=== PATIENT | female | born 1955 | race Caucasian/White ===

== ENCOUNTER 2019-09-16 12:06 | Emergency (ER) | payer MEDICARE, SELFPAY ==
[2019-09-16 12:08] VITALS: BP 150/75; PULSE 70; TEMP 36.8; O2SAT 98
[2019-09-16] MEDS: Tetracaine 0.5% 4 ML BTL (12:25)
[2019-09-16] MEDS: Fluorescein STRIPS 100/BOX 1 MG (12:25)
--- NOTE | 2019-09-16 13:08 | ED.GENADUL_ITS ---
Discharge Plan Disposition Patient Disposition: HOME Condition: Stable Discharge Details Chief Complaint: EyeProblem Clinical Impression: Discomfort of left eye Primary Care Provider: [facility] ED Provider: Mason Galo Home Meds and New Rx's Prescriptions: Continued acyclovir 400 mg Tablet 400 mg PO PRN PRNRF: 0 simvastatin 40 mg Tablet 40 mg PO DAILY RF: 0 levothyroxine 500 mcg Recon Soln 500 mcg PO DAILY RF: 0 olmesartan 40 mg Tablet 40 mg PO DAILY RF: 0 Multi For Her 18 mg iron-600 mcg-40 mcg Capsule 1 tab-cap PO DAILY RF: 0 Discharge Instructions Instructions: Eye Pain (ED) Additional Instructions: At this time I examination does not reveal any signs of obvious infection, trauma, and your intraocular pressure is normal. Fluorescein dye of your eye was also normal. At this time I recommend using [id number] antihistamine drops for conservative therapy. I do recommend that you watch for new or evolving symptoms and return immediately to the ER otherwise when she returned home on Wednesday follow-up with a local invoicing specialist. Discharge Data Discharge Date/Time-TO BE ENTERED AT DEPARTURE: 09/16/19 13:22 Medical Decision Making 63-year-old female presenting with left eye irritation intermittent for couple of weeks. She appears well, nontoxic. Outside of minimal scleral swelling- edema her eye exam is unremarkable. Visual acuity is 20/20 bilaterally with corrective lenses. Intraocular pressure is within normal range. No fluorescein dye uptake. The differential includes but not exclude to conjunctivitis, allergic reaction, iritis, glaucoma, foreign body, corneal abrasion, detached retina, hyphema. Given her examination, visual acuities, normal intraocular pressure we discussed her options. She appears well, nontoxic. No clear indication for topical antibiotic or steroid therapy. No evidence of acute closed angle glaucoma. We discussed conservative therapy with antihistamine drops, return to the ER for new or worsening symptoms, otherwise following up with an invoicing specialist when she returns home to [place] on Wednesday. Patient has no additional questions or concerns and is comfortable with this plan HPI General Mode of arrival: ambulatory . Date/Time Provider Initiated Documentation: 09/16/19 12:14 . Limitations to Documentation: no limitations . Information obtained by: patient . HPI Narrative: This is a 63-year-old female with a history of thyroid disease presenting to the ER with 2-3-week history of intermittent left eye irritation. She reports most recently she is just getting over with a cold and feels like her left eye is irritated, maybe has a foreign body or a scratch. She denies any obvious trauma. Denies any drainage. She does wear contacts and glasses. Denies any visual changes. Related Data Home Medications Medication Instructions Recorded Confirmed Multi For Her 1 tab-cap PO DAILY 09/16/19 09/16/19 acyclovir 400 mg PO PRN PRN 09/16/19 09/16/19 levothyroxine 500 mcg PO DAILY 09/16/19 09/16/19 olmesartan 40 mg PO DAILY 09/16/19 09/16/19 simvastatin 40 mg PO DAILY 09/16/19 09/16/19 Allergies Allergy/AdvReac Type Severity Reaction Status Date / Time No Known Allergies Allergy Unverified 09/16/19 12:12 General Stated Complaint: EyeProblem KRISS: 4 Review of Systems Constitutional Constitutional: Denies fever(s), Denies headache(s) and Denies weakness Eyes Eyes: Denies blurry vision, Denies change in vision, Denies diplopia, Denies eye discharge, Denies dry eyes, Denies floaters, Reports irritation, Reports itchy eyes, Denies loss of peripheral vision, Denies loss of vision, Denies other visual disturbances, Reports eye pain, Reports requires corrective lenses, Denies seeing flashes, Reports photophobia (Minimal) and Denies spots in vision ENT Ears, Nose, Mouth, and Throat: Denies dizziness, Denies headache(s), Denies nasal discharge and Denies sore throat Cardiovascular Cardiovascular: Denies chest pain Respiratory Respiratory: Denies cough Gastrointestinal Gastrointestinal: Denies nausea and Reports vomiting Musculoskeletal Musculoskeletal: Denies numbness and Denies tingling Integumentary/Breasts Skin/Breast: Denies rash Neurologic Neurologic: Denies dizziness, Denies headache(s), Denies loss of vision, Denies numbness, Denies tingling and Denies weakness Allergic/Immunologic Allergic/Immunologic: Reports itchy eyes [facility] Social History Smoking/Tobacco Use Status: Never Alcohol Intake: current Alcohol Intake frequency: holidays/special occasions only Substance use type: does not use Do you feel safe at home: Yes Do you feel safe in your relationship?: Yes Exam Const General: cooperative, healthy appearing, comfortable and no acute distress Orientation: alert and awake [facility] [place] Head: normal to inspection, normocephalic and atraumatic Mouth: moist mucous membranes Eyes Alignment and Position: alignment normal Periorbital: periorbital findings normal Eyelids: eyelids normal Conjunctivae: conjunctivae normal Sclera: scleral abnormality left other (Medial aspect with minimal swelling- edema.) Cornea: corneas normal and fluorescein used (No dye uptake) Pupils: PERRL EOM: EOM intact bilaterally Direct ophthalmoscopy: normal light reflex Other: Measured left eye intraocular pressure 3 times, average of 17. Neck Neck: normal visual inspection, full ROM, no meningeal signs, trachea midline and supple Resp Effort & Inspection: normal respiratory effort and able to speak in complete sentences Skin General skin exam: no rashes or lesions noted Neuro General: alert, awake, moves all extremities and no focal motor deficits Sensory Exam: no sensory deficits noted Psych Appearance: grossly normal Mental Status: mental status grossly normal Course Vital Signs Vital signs: Vital Signs Temperature 36.8 C 09/16/19 12:08 Pulse 70 09/16/19 12:08 Blood Pressure 150/75 H 09/16/19 12:08 Pulse Oximetry 98 09/16/19 12:08 Temperature 36.8 C 09/16/19 12:08 Temperature Source Skin 09/16/19 12:08 Pulse 70 09/16/19 12:08 Respiratory Effort Non-Labored 09/16/19 12:33 Blood Pressure 150/75 H 09/16/19 12:08 Blood Pressure Position Sitting 09/16/19 12:08 Pulse Oximetry 98 09/16/19 12:08 Oxygen Delivery Method Room Air 09/16/19 12:08 Oxygen Flow Rate 0 09/16/19 12:08 Pain Level 8 09/16/19 12:08
== END 2019-09-16 13:22 | disposition home or self-care (01) ==
PROVIDERS: Emergency Provider Physician Assistant
DX: H57.12 Ocular pain, left eye (principal)
CPT/HCPCS: 99283; 99282